=== PATIENT | female | born 1945 | race Caucasian/White ===

== ENCOUNTER 2018-10-14 03:23 | Inpatient (IN) | payer OTHER, BC ==
--- NOTE | 2018-10-14 03:49 | PDOC ---
History of Present Illness - General History Source: Patient Exam Limitations: No Limitations - History of Present Illness Initial Comments: Pt presenting with complaints of R flank and RLQ pain x5 days. Pt states the pain started in her R flank about 5 days ago, and has slowly migrated towards her RLQ. She has been tossing and turning at night, unable to get comfortable. She took 1 naproxen last night with minimal relief. There are no exacerbating or alleviating factors for the pain. The pain is crampy in nature, and comes and goes, lasting for a few hours at a time. She had nausea and 1 episode of NBNB vomiting just prior to arrival in the ER. Pt denies any history of kidney stones. Pt denies any fevers/chills, headache, vision changes, syncope, chest pain, palpitations, SOB, urinary symptoms (dysuria, hematuria, urgency), diarrhea/constipation, or leg swelling. Social: Pt skilled nursing cigarette user, has used electronic cigarettes over past few years. Denies alcohol or drug use. Pt denies any recent travel or sick contacts. Surgical: complete hysterectomy Family: no relevant history 10/14/18 06:16 <Angie Hammond - Last Filed: 10/14/18 05:49> <Alejandra Duran - Last Filed: 10/14/18 07:15> - General Chief Complaint: Pain, Acute Stated Complaint: R SIDED ABD PAIN Time Seen by Provider: 10/14/18 03:49 Past History - Travel Traveled outside of the country in the last 30 days: No Close contact w/someone who was outside of country & ill: No - Past Medical History Diabetes: No HTN: No Hypercholesterolemia: No Kidney Stones: No - Surgical History Abdominal Surgery: Yes (complete hysterectomy) Appendectomy: No Cholecystectomy: No - Suicide/Smoking/Psychosocial Hx Smoking History: Former smoker Have you smoked in the past 12 months: No If you are a former smoker, when did you quit?: 4 Information on smoking cessation initiated: No Hx Alcohol Use: No Drug/Substance Use Hx: No <Angie Hammond - Last Filed: 10/14/18 05:49> <Alejandra Duran - Last Filed: 10/14/18 07:15> - Past Medical History Allergies/Adverse Reactions: Allergies Allergy/AdvReac Type Severity Reaction Status Date / Time No Known Allergies Allergy Verified 10/14/18 03:43 Home Medications: Ambulatory Orders NK [No Known Home Medication] 10/14/18 Review of Systems - Review of Systems Able to Perform ROS?: Yes Is the patient limited Tunisian proficient: No Constitutional: Yes: Weight Stable. No: Chills, Diaphoresis, Fever, Loss of Appetite, Weakness HEENTM: No: Blurred Vision, Recent change in vision, Nose Congestion, Throat Pain, Difficulty Swallowing Respiratory: No: Cough, Orthopnea, Shortness of Breath Cardiac (ROS): No: Chest Pain, Edema, Irregular Heart Rate, Lightheadedness, Palpitations, Syncope, Chest Tightness ABD/GI: Yes: See HPI, Nausea, Vomiting, Abdominal cramping. No: Abdominal Distended, Blood Streaked Bowels, Constipated, Diarrhea, Poor Appetite, Poor Fluid Intake, Indigestion : Yes: Flank Pain. No: Burning, Dysuria, Discharge, Frequency, Hematuria, Incontinence, Pain, Urgency Musculoskeletal: No: Back Pain, Joint Pain Integumentary: No: Rash Neurological: No: Headache, Weakness, Unsteady Gait, Dizziness Psychiatric: No: Sleep Pattern Change, Change in Appetite Endocrine: No: Increased Urine, Change in Weight Hematologic/Lymphatic: No: Anemia, Blood Clots, Easy Bleeding, Easy Bruising All Other Systems: Reviewed and Negative <Angie Hammond - Last Filed: 10/14/18 05:49> *Physical Exam - Vital Signs Last Vital Signs Temp Pulse Resp BP Pulse Ox 98.1 F 70 18 154/68 99 10/14/18 03:43 10/14/18 03:43 10/14/18 03:43 10/14/18 03:43 10/14/18 03:43 - Physical Exam General Appearance: Yes: Nourished, Appropriately Dressed, Mild Distress ( Vitals stable, but pt appears uncomfortable, holding RLQ.) HEENT: positive: EOMI, ALBERT, Normal ENT Inspection, Normal Voice, Pharynx Normal , Hearing Grossly Normal. negative: Scleral Icterus (R), Scleral Icterus (L), Pharyngeal Erythema, Tonsillar Exudate, Tonsillar Erythema, Rhinorrhea Neck: positive: Trachea midline, Normal Thyroid, Supple. negative: Tender, Rigid, Lymphadenopathy (R), Lymphadenopathy (L) Respiratory/Chest: positive: Lungs Clear, Normal Breath Sounds. negative: Chest Tender, Respiratory Distress, Accessory Muscle Use, Crackles, Wheezing Cardiovascular: positive: Regular Rhythm, Regular Rate, S1, S2. negative: Edema , JVD, Murmur Vascular Pulses: Carotid (R): 4+, Carotid (L): 4+ Gastrointestinal/Abdominal: positive: Normal Bowel Sounds, Flat, Soft. negative : Tender, Organomegaly, Pulsatile Mass, Distended, Guarding, Rebound, Hernia Rectal Exam: positive: deferred Lymphatic: negative: Adenopathy, Tenderness Musculoskeletal: positive: Normal Inspection. negative: CVA Tenderness Extremity: positive: Normal Capillary Refill, Normal Inspection, Normal Range of Motion, Pelvis Stable. negative: Tender, Pedal Edema Integumentary: positive: Normal Color, Dry, Warm. negative: Jaundice, Clammy, Diaphoresis, Rash Neurologic: positive: autos disassembler II-XII NML intact, Fully Oriented, Alert, Normal Mood/ Affect, Normal Response, Motor Strength 5/5 <Angie Hammond - Last Filed: 10/14/18 05:49> - Vital Signs Last Vital Signs Temp Pulse Resp BP Pulse Ox 98.1 F 70 18 154/68 99 10/14/18 03:43 10/14/18 03:43 10/14/18 03:43 10/14/18 03:43 10/14/18 03:43 <Alejandra Duran - Last Filed: 10/14/18 07:15> Moderate Sedation - Procedure Monitoring Vital Signs: Procedure Monitoring Vital Signs Temperature 98.1 F 10/14/18 03:43 Pulse Rate 70 10/14/18 03:43 Respiratory Rate 18 10/14/18 03:43 Blood Pressure 154/68 10/14/18 03:43 O2 Sat by Pulse Oximetry (%) 99 10/14/18 03:43 <Angie Hammond - Last Filed: 10/14/18 05:49> - Procedure Monitoring Vital Signs: Procedure Monitoring Vital Signs Temperature 98.1 F 10/14/18 03:43 Pulse Rate 70 10/14/18 03:43 Respiratory Rate 18 10/14/18 03:43 Blood Pressure 154/68 10/14/18 03:43 O2 Sat by Pulse Oximetry (%) 99 10/14/18 03:43 <Alejandra Duran - Last Filed: 10/14/18 07:15> ED Treatment Course - LABORATORY CBC & Chemistry Diagram: 10/14/18 04:35 10/14/18 04:35 <Angie Hammond - Last Filed: 10/14/18 05:49> - LABORATORY CBC & Chemistry Diagram: 10/14/18 04:35 10/14/18 04:35 - ADDITIONAL ORDERS Additional order review: Laboratory Results 10/14/18 10/14/18 05:53 04:35 Sodium 142 Potassium 5.0 Chloride 109 H Carbon Dioxide 28 Anion Gap 5 L BUN 21 H Creatinine 0.8 Creat Clearance w eGFR > 60 Random Glucose 95 Calcium 8.8 Total Bilirubin 0.7 AST 29 ALT 20 Alkaline Phosphatase 83 Total Protein 6.7 Albumin 4.0 Urine Color Yellow Urine Appearance Clear Urine pH 5.0 Ur Specific [place] 1.028 Urine Protein Negative Urine Glucose (UA) Negative Urine Ketones Negative Urine Blood 2+ H Urine Nitrite Negative Urine Bilirubin Negative Urine Urobilinogen Negative Ur Leukocyte Esterase Trace Urine WBC (Auto) 19 Urine RBC (Auto) 8 Ur Epithelial Cells Rare Urine Mucus Rare 10/14/18 04:35 RBC 4.65 MCV 81.9 MCHC 34.5 RDW 13.2 MPV 8.0 Neutrophils % 68.9 Lymphocytes % 19.9 D Monocytes % 8.0 Eosinophils % 2.2 Basophils % 1.0 - Medications Given in the ED: ED Medications Discontinued Medications Generic Name Dose Route Start Last Admin Trade Name Freq PRN Reason Stop Dose Admin Acetaminophen 1,000 mg 10/14/18 04:04 10/14/18 04:29 Ofirmev Injection - IVPB 10/14/18 04:05 Not Given ONCE ONE Acetaminophen 1,000 mg 10/14/18 04:04 10/14/18 04:28 Ofirmev Injection - IVPB 10/14/18 04:05 1,000 mg ONCE ONE Administration Sodium Chloride 1,000 mls @ 1,000 mls/hr 10/14/18 04:04 10/14/18 04:28 Normal Saline - IV 10/14/18 05:03 Not Given ASDIR STA Sodium Chloride 1,000 mls @ 1,000 mls/hr 10/14/18 04:04 10/14/18 04:28 Normal Saline - IV 10/14/18 05:03 1,000 mls/hr ASDIR STA Administration Ceftriaxone Sodium 1,000 mg/ 50 mls @ 100 mls/hr 10/14/18 06:20 10/14/18 06: 28 Dextrose IVPB 10/14/18 06:49 100 mls/hr ONCE ONE Administration Ketorolac Tromethamine 15 mg 10/14/18 04:10 10/14/18 04:28 Toradol Injection - IVPUSH 10/14/18 04:11 15 mg ONCE ONE Administration Morphine Sulfate 2 mg 10/14/18 04:43 10/14/18 04:50 Morphine Injection - IVPUSH 10/14/18 04:44 2 mg ONCE ONE Administration Morphine Sulfate 2 mg 10/14/18 06:20 10/14/18 06:28 Morphine Injection - IVPUSH 10/14/18 06:21 Not Given ONCE ONE Morphine Sulfate 4 mg 10/14/18 06:20 10/14/18 06:28 Morphine Injection - IVPUSH 10/14/18 06:21 4 mg ONCE ONE Administration Ondansetron HCl 4 mg 10/14/18 04:04 10/14/18 04:28 Zofran Injection IVPUSH 10/14/18 04:05 4 mg ONCE ONE Administration <Alejandra Duran - Last Filed: 10/14/18 07:15> Medical Decision Making - Medical Decision Making Pt was seen at bedside, also will be seen by attending Dr. Duran. Pt presenting with complaints of R flank and RLQ pain x5 days. Pt states the pain started in her R flank about 5 days ago, and has slowly migrated towards her RLQ. She has been tossing and turning at night, unable to get comfortable. She took 1 naproxen last night with minimal relief. There are no exacerbating or alleviating factors for the pain. The pain is crampy in nature, and comes and goes, lasting for a few hours at a time. She had nausea and 1 episode of NBNB vomiting just prior to arrival in the ER. Pt denies any history of kidney stones. Pt denies any fevers/chills, headache, vision changes, syncope, chest pain, palpitations, SOB, urinary symptoms (dysuria, hematuria, urgency), diarrhea/constipation, or leg swelling. PE showed no abdominal tenderness, rebound, or guarding. No CVA tenderness. Heart and lung sounds clear. Considering [vs vs] No concern for ovarian pathology as pt had complete hysterectomy performed with ovarian removal. Ordered work-up including CBC, CMP, UA, urine culture, and spiral CT scan r/o stones. Provided 1 g ofirmev, 1 L IV NS, 4 mg IV zofran, 15 mg IV toradol for improvement of pain. Will continue to reassess pt and monitor for symptomatic improvement. Preliminary bedside US showed no hydronephrosis. No stones visualized. Pt still complaining of pain, providing 2 mg IV morphine. 10/14/18 04:44 CBC: 12.[address] scan (performing scan without contrast) 10/14/18 04:55 FINDINGS: Moderate emphysema is noted predominating in the right lower lobe. The visualized cardiac chambers are normal size and configuration. Normal unenhanced liver, gallbladder, pancreas, spleen, adrenal glands and kidneys. The stomach and abdominal small and large bowel are normal. There is no aortic aneurysm. There is no significant retroperitoneal lymphadenopathy. The pelvic small and large bowel are normal. The appendix is normal. Status post hysterectomy. Urinary bladder is unremarkable. There is no pelvic free fluid. No discrete pelvic lymphadenopathy is identified. 10/14/18 05:49 CMP generally WNL. 10/14/18 05:49 Urine sent, pending. 10/14/18 06:05 <Angie Hammond - Last Filed: 10/14/18 05:49> *DC/Admit/Observation/Transfer <Angie Hammond - Last Filed: 10/14/18 05:49> - Discharge Dispostion Decision to Admit order: Yes Decision to Admit order Date/Time: Decision to Admit Order Category Date Time Status Decision to Admit to Hospital Routine Admission 10/14/18 07:14 Ordered <Alejandra Duran - Last Filed: 10/14/18 07:15> Diagnosis at time of Disposition: Acute pyelonephritis - Discharge Dispostion Condition at time of disposition: Improved - Referrals Referrals: Jaylon Atkins MD [Primary Care Provider] - - Patient Instructions - Post Discharge Activity
[2018-10-14] MEDS ORDERED: SODIUM CHLORIDE 1,000 ML IV STA ×2 (04:04)
[2018-10-14] MEDS ORDERED: ACETAMINOPHEN 1000 MG/100 ML VIAL (NON FORMULARY) IVPB ONE ×2 (04:04)
[2018-10-14] MEDS ORDERED: ONDANSETRON 4 MG/2 ML VIAL IVPUSH ONE (04:04)
--- NOTE | 2018-10-14 04:05 | PDOC ---
Attending Attestation - Resident Resident Name: Angie Hammond - ED Attending Attestation I have performed the following: I have examined & evaluated the patient, The case was reviewed & discussed with the resident, I agree w/resident's findings & plan - HPI HPI: 10/14/18 04:51 [id number], with no significant past medical history, who presents to the emergency department with, right flank pain radiating to her right groin x 5 days. She endorses taking Naproxen, with minimal relief. no history of kidney stones. She denies recent fevers, chills, headache or dizziness. She denies recent nausea, vomit, diarrhea or constipation. She denies recent dysuria, frequency, urgency or hematuria. She denies recent chest pain or shortness of breath. Allergies: NKA Past surgical history: None reported. Social history: Former smoker. Primary Care Physician: Dr. Atkins 10/14/18 04:51 - Physicial Exam PE: 10/14/18 04:51 +colicky, mild distress 2/2 pain. nl conjunctiva, anicteric; neck supple. lungs clear, RRR, abdomen soft +RLQ/groind TTP, no rebound or guarding. no CVAT. PHAN x4, no focal neuro deficits. No peripheral edema. normal color for ethnicity, WWP. - Medical Decision Making 10/14/18 04:53 DDx abdominal pain: Renal colic, ureteral stone. biliary colic, metabolic/ electrolyte derangements. GERD, PUD, esophageal spasm, pancreatitis, hepatitis, constipation, colitis, gastroenteritis, cholecystitis, UTI, pyelonephritis, ileus, SBO, medication side effect, hernia, appendicitis, diverticulitis hpi as documented VS wnl. no fever here labs and lytes_with mild leukocytosis of 12K UA_positive with copious WBCs, correlating with infection bedside renal sono neg for hydronephrosis, +color flow bilaterally, no pelvic FF. still suspecting renal stone/due to pain and presentation, will do CT krish. CT neg for stone or pathology/infection clinically correlating with acute pyelo with +UTI. f/u urine cultures given analgesia with morphine, toradol/tylenol, IVF Ceftriaxone tx. pt elects for admission when offered, which is appropriate due to her pain and clinical pyelo presentation. admit to medicine team for management. 10/14/18 07:03 10/14/18 07:07
[2018-10-14] MEDS ORDERED: KETOROLAC TROMETHAMINE 15 MG/ML VIAL IVPUSH ONE (04:10)
[2018-10-14] MEDS ORDERED: morphine CARPU-JECT 4 MG/1 ML DISP.SYRIN IVPUSH ONE ×3 (04:43→06:20)
[2018-10-14 04:44] LABS: EOS % 2.2 % (0-4.5); HEMOGLOBIN 13.1 GM/dL (10.7-15.3); LYMPH % 19.9 % (8-40); MCH 28.3 pg (25.7-33.7); MCHC 34.5 g/dl (32.0-36.0); MEAN CELL VOLUME 81.9 fl (80-96); NEUT % 68.9 % (42.8-82.8); PLATELET COUNT 360 K/MM3 (134-434); RBC 4.65 M/mm3 (3.60-5.2); RDW 13.2 % (11.6-15.6); WHITE BLOOD COUNT 12.1 K/mm3 (4.0-10.0)
[2018-10-14 05:31] LABS: ALK PHOS 83 U/L (45-117); ANION GAP 5 MMOL/L (8-16); BILIRUBIN,TOTAL 0.7 mg/dL (0.2-1); BLOOD UREA NITROGEN 21 mg/dL (7-18); CALCIUM 8.8 mg/dL (8.5-10.1); CHLORIDE 109 mmol/L (98-107); CO2 28 mmol/L (21-32); CREATININE 0.8 mg/dL (0.55-1.3); GLUCOSE,RANDOM 95 mg/dL (74-106); SGOT/AST 29 U/L (15-37); SGPT/ALT 20 U/L (13-61); SODIUM 142 mmol/L (136-145); TOT PROT 6.7 g/dl (6.4-8.2)
[2018-10-14 06:08] LABS: URINE APPEARANCE CLEAR; URINE BILIRUBIN NEGATIVE (<2.0 mg/dL); URINE COLOR YELLOW; URINE GLUCOSE (UA) NEGATIVE (NEGATIVE); URINE KETONE NEGATIVE (NEGATIVE); URINE LEUK ESTERASE TRACE (NEGATIVE); URINE NITRITE NEGATIVE (NEGATIVE); URINE PROTEIN NEGATIVE (NEGATIVE); URINE UROBILINOGEN NEGATIVE mg/dL (0.2-1.0)
[2018-10-14 06:12] LABS: EPI CELLS RARE /HPF (FEW); URINE MUCUS RARE
[2018-10-14] MEDS ORDERED: CEFTRIAXONE 1,000 MG in DEXTROSE 5%-WATER - 50 ML IVPB ONE (06:20)
[2018-10-14] MEDS ORDERED: SODIUM CHLORIDE 500 ML IV STA (07:37)
--- NOTE | 2018-10-14 07:57 | PDOC ---
*Physical Exam - Vital Signs Last Vital Signs Temp Pulse Resp BP Pulse Ox 98.6 F 74 16 130/58 L 95 10/14/18 09:11 10/14/18 09:11 10/14/18 09:11 10/14/18 09:11 10/14/18 09:11 <Gladys Lott - Last Filed: 10/14/18 09:38> - Vital Signs Last Vital Signs Temp Pulse Resp BP Pulse Ox 98.1 F 70 18 154/68 99 10/14/18 03:43 10/14/18 03:43 10/14/18 03:43 10/14/18 03:43 10/14/18 03:43 <Cayla Mike - Last Filed: 10/14/18 18:37> ED Treatment Course - LABORATORY CBC & Chemistry Diagram: 10/14/18 04:35 10/14/18 04:35 - ADDITIONAL ORDERS Additional order review: Laboratory Results 10/14/18 10/14/18 05:53 04:35 Sodium 142 Potassium 5.0 Chloride 109 H Carbon Dioxide 28 Anion Gap 5 L BUN 21 H Creatinine 0.8 Creat Clearance w eGFR > 60 Random Glucose 95 Calcium 8.8 Total Bilirubin 0.7 AST 29 ALT 20 Alkaline Phosphatase 83 Total Protein 6.7 Albumin 4.0 Urine Color Yellow Urine Appearance Clear Urine pH 5.0 Ur Specific [place] 1.028 Urine Protein Negative Urine Glucose (UA) Negative Urine Ketones Negative Urine Blood 2+ H Urine Nitrite Negative Urine Bilirubin Negative Urine Urobilinogen Negative Ur Leukocyte Esterase Trace Urine WBC (Auto) 19 Urine RBC (Auto) 8 Ur Epithelial Cells Rare Urine Mucus Rare 10/14/18 04:35 RBC 4.65 MCV 81.9 MCHC 34.5 RDW 13.2 MPV 8.0 Neutrophils % 68.9 Lymphocytes % 19.9 D Monocytes % 8.0 Eosinophils % 2.2 Basophils % 1.0 - Medications Given in the ED: ED Medications Discontinued Medications Generic Name Dose Route Start Last Admin Trade Name Freq PRN Reason Stop Dose Admin Acetaminophen 1,000 mg 10/14/18 04:04 10/14/18 04:29 Ofirmev Injection - IVPB 10/14/18 04:05 Not Given ONCE ONE Acetaminophen 1,000 mg 10/14/18 04:04 10/14/18 04:28 Ofirmev Injection - IVPB 10/14/18 04:05 1,000 mg ONCE ONE Administration Sodium Chloride 1,000 mls @ 1,000 mls/hr 10/14/18 04:04 10/14/18 04:28 Normal Saline - IV 10/14/18 05:03 Not Given ASDIR STA Sodium Chloride 1,000 mls @ 1,000 mls/hr 10/14/18 04:04 10/14/18 04:28 Normal Saline - IV 10/14/18 05:03 1,000 mls/hr ASDIR STA Administration Ceftriaxone Sodium 1,000 mg/ 50 mls @ 100 mls/hr 10/14/18 06:20 10/14/18 06: 28 Dextrose IVPB 10/14/18 06:49 100 mls/hr ONCE ONE Administration Sodium Chloride 500 mls @ 500 mls/hr 10/14/18 07:37 10/14/18 08:03 Normal Saline - IV 10/14/18 08:36 500 mls/hr ASDIR STA Administration Ketorolac Tromethamine 15 mg 10/14/18 04:10 10/14/18 04:28 Toradol Injection - IVPUSH 10/14/18 04:11 15 mg ONCE ONE Administration Morphine Sulfate 2 mg 10/14/18 04:43 10/14/18 04:50 Morphine Injection - IVPUSH 10/14/18 04:44 2 mg ONCE ONE Administration Morphine Sulfate 2 mg 10/14/18 06:20 10/14/18 06:28 Morphine Injection - IVPUSH 10/14/18 06:21 Not Given ONCE ONE Morphine Sulfate 4 mg 10/14/18 06:20 10/14/18 06:28 Morphine Injection - IVPUSH 10/14/18 06:21 4 mg ONCE ONE Administration Ondansetron HCl 4 mg 10/14/18 04:04 10/14/18 04:28 Zofran Injection IVPUSH 10/14/18 04:05 4 mg ONCE ONE Administration <Gladys Lott - Last Filed: 10/14/18 09:38> - LABORATORY CBC & Chemistry Diagram: 10/14/18 04:35 10/14/18 04:35 - ADDITIONAL ORDERS Additional order review: Laboratory Results 10/14/18 10/14/18 05:53 04:35 Sodium 142 Potassium 5.0 Chloride 109 H Carbon Dioxide 28 Anion Gap 5 L BUN 21 H Creatinine 0.8 Creat Clearance w eGFR > 60 Random Glucose 95 Calcium 8.8 Total Bilirubin 0.7 AST 29 ALT 20 Alkaline Phosphatase 83 Total Protein 6.7 Albumin 4.0 Urine Color Yellow Urine Appearance Clear Urine pH 5.0 Ur Specific [place] 1.028 Urine Protein Negative Urine Glucose (UA) Negative Urine Ketones Negative Urine Blood 2+ H Urine Nitrite Negative Urine Bilirubin Negative Urine Urobilinogen Negative Ur Leukocyte Esterase Trace Urine WBC (Auto) 19 Urine RBC (Auto) 8 Ur Epithelial Cells Rare Urine Mucus Rare 10/14/18 04:35 RBC 4.65 MCV 81.9 MCHC 34.5 RDW 13.2 MPV 8.0 Neutrophils % 68.9 Lymphocytes % 19.9 D Monocytes % 8.0 Eosinophils % 2.2 Basophils % 1.0 - Medications Given in the ED: ED Medications Discontinued Medications Generic Name Dose Route Start Last Admin Trade Name Freq PRN Reason Stop Dose Admin Acetaminophen 1,000 mg 10/14/18 04:04 10/14/18 04:29 Ofirmev Injection - IVPB 10/14/18 04:05 Not Given ONCE ONE Acetaminophen 1,000 mg 10/14/18 04:04 10/14/18 04:28 Ofirmev Injection - IVPB 10/14/18 04:05 1,000 mg ONCE ONE Administration Sodium Chloride 1,000 mls @ 1,000 mls/hr 10/14/18 04:04 10/14/18 04:28 Normal Saline - IV 10/14/18 05:03 Not Given ASDIR STA Sodium Chloride 1,000 mls @ 1,000 mls/hr 10/14/18 04:04 10/14/18 04:28 Normal Saline - IV 10/14/18 05:03 1,000 mls/hr ASDIR STA Administration Ceftriaxone Sodium 1,000 mg/ 50 mls @ 100 mls/hr 10/14/18 06:20 10/14/18 06: 28 Dextrose IVPB 10/14/18 06:49 100 mls/hr ONCE ONE Administration Ketorolac Tromethamine 15 mg 10/14/18 04:10 10/14/18 04:28 Toradol Injection - IVPUSH 10/14/18 04:11 15 mg ONCE ONE Administration Morphine Sulfate 2 mg 10/14/18 04:43 10/14/18 04:50 Morphine Injection - IVPUSH 10/14/18 04:44 2 mg ONCE ONE Administration Morphine Sulfate 2 mg 10/14/18 06:20 10/14/18 06:28 Morphine Injection - IVPUSH 10/14/18 06:21 Not Given ONCE ONE Morphine Sulfate 4 mg 10/14/18 06:20 10/14/18 06:28 Morphine Injection - IVPUSH 10/14/18 06:21 4 mg ONCE ONE Administration Ondansetron HCl 4 mg 10/14/18 04:04 10/14/18 04:28 Zofran Injection IVPUSH 10/14/18 04:05 4 mg ONCE ONE Administration <Cayla Mike - Last Filed: 10/14/18 18:37> Medical Decision Making - Medical Decision Making 73yo F with UTI and intractable R. flank/RLQ pain Awaiting callback from hospitalist team Patient with dry mucus membranes. 500cc NS ordered Patient still endorsing nausea after 4mg zofran, but deferred antinausea medicine at this time. 10/14/18 07:[address] Calvo who accepted patient for admission. 10/14/18 18:36 <Cayla Mike - Last Filed: 10/14/18 18:37> *DC/Admit/Observation/Transfer <Gladys Lott - Last Filed: 10/14/18 09:38> <Cayla Mike - Last Filed: 10/14/18 18:37> Diagnosis at time of Disposition: Acute pyelonephritis - Discharge Dispostion Condition at time of disposition: Improved
--- NOTE | 2018-10-14 12:56 | PN ---
Progress Note (short form) - Note Progress Note: ID consult dictated right lower back pain radiating to the front- ?radiculopathy no fevers gradually worsening over the course of one week not c/w pyelonephritis or cysitis-very atypical for uti no evidence of appendicitis consider imaging of the LS spine esr/crp cultures rocephin for possible uti Problem List - Problems (1) Radiculopathy of lumbar region Code(s): M54.16 - RADICULOPATHY, LUMBAR REGION (2) UTI (urinary tract infection) Code(s): N39.0 - URINARY TRACT INFECTION, SITE NOT SPECIFIED
--- NOTE | 2018-10-14 17:59 | HP ---
Admitting History and Physical - Primary Care Physician PCP: Lizzie Calvo - Admission Chief Complaint: FLANK PAIN/PYELONEPHRITIS History of Present Illness: Pt presenting with complaints of R flank and RLQ pain x5 days. Pt states the pain started in her R flank about 5 days ago, and has slowly migrated towards her RLQ. She has been tossing and turning at night, unable to get comfortable. She took 1 naproxen last night with minimal relief. There are no exacerbating or alleviating factors for the pain. The pain is crampy in nature, and comes and goes, lasting for a few hours at a time. She had nausea and 1 episode of NBNB vomiting just prior to arrival in the ER. Pt denies any history of kidney stones. Pt denies any fevers/chills, headache, vision changes, syncope, chest pain, palpitations, SOB, urinary symptoms (dysuria, hematuria, urgency), diarrhea/constipation, or leg swelling. History Source: Patient, Medical Record - Smoking History Smoking history: Former smoker Have you smoked in the past 12 months: No If you are a former smoker, when did you quit?: 4 - Alcohol/Substance Use Hx Alcohol Use: No Home Medications - Allergies Allergies/Adverse Reactions: Allergies Allergy/AdvReac Type Severity Reaction Status Date / Time No Known Allergies Allergy Verified 10/14/18 03:43 - Home Medications Home Medications: Ambulatory Orders NK [No Known Home Medication] 10/14/18 Review of Systems - Review of Systems Constitutional: reports: Weakness Eyes: reports: No Symptoms HENT: reports: No Symptoms Neck: reports: No Symptoms Cardiovascular: reports: No Symptoms Respiratory: reports: No Symptoms Gastrointestinal: reports: Abdominal Pain, Other Genitourinary: reports: Flank Pain Musculoskeletal: reports: Muscle Weakness Integumentary: reports: No Symptoms Neurological: reports: No Symptoms Endocrine: reports: No Symptoms Hematology/Lymphatic: reports: No Symptoms Physical Examination Vital Signs: Vital Signs Temperature 98.3 F 10/14/18 11:59 Pulse Rate 74 10/14/18 15:50 Respiratory Rate 16 10/14/18 15:50 Blood Pressure 145/54 L 10/14/18 15:50 O2 Sat by Pulse Oximetry (%) 97 10/14/18 15:50 Constitutional: Yes: Mild Distress Eyes: Yes: WNL HENT: Yes: WNL Neck: Yes: WNL Cardiovascular: Yes: Regular Rate and Rhythm Respiratory: Yes: WNL Gastrointestinal: Yes: Tenderness Renal/: Yes: CVA Tenderness - Right Musculoskeletal: Yes: Back Pain Extremities: Yes: WNL Edema: No Peripheral Pulses WNL: Yes Integumentary: Yes: WNL Wound/Incision: Yes: Clean/Dry Neurological: Yes: WNL ...Motor Strength: WNL Psychiatric: Yes: WNL Labs: CBC, BMP 10/14/18 04:35 10/14/18 04:35 Imaging - Results Cat Scan: Report Reviewed Problem List - Problems (1) Radiculopathy of lumbar region Code(s): M54.16 - RADICULOPATHY, LUMBAR REGION (2) Acute pyelonephritis Code(s): N10 - ACUTE PYELONEPHRITIS Assessment/Plan IV ABX MR OF L SPINE PAIN CONTROL IVF CHECK CX
[2018-10-14] MEDS ORDERED: DOCUSATE SODIUM 100 MG CAPSULE (FP) PO PRN (18:03)
[2018-10-14] MEDS ORDERED: ACETAMINOPHEN 325 MG TABLET (FP) PO PRN (18:04)
[2018-10-14] MEDS ORDERED: oxyCODONE HCL 5 MG TABLET ONE (18:20)
[2018-10-14] MEDS: oxyCODONE HCL 5 MG TABLET PO PRN (18:20)
--- NOTE | 2018-10-14 20:07 | CONS ---
DATE OF CONSULTATION: DATE OF DICTATION: 10/14/2018 REQUESTING PHYSICIAN: Lizzie Calvo M.D. CONSULTING PHYSICIAN: Verónica Garza M.D. HISTORY OF PRESENT ILLNESS: This is a 73-year-old woman who before Aaliyah was at her daughter's house in her media room. She was watching movies. She was sitting on the couch. And then when she got up she had a discomfort in her right back. This persisted and worsened. She developed a band-like pain that radiated from above her right buttocks and above, and it came around in a radial fashion to the front. This worsened and worsened, and she presented to the emergency room at [facility] with these complaints. She never had any fevers or chills. In the ER, she had a CAT scan of her abdomen and pelvis done that was essentially normal. As well it shows no evidence of diverticulitis or appendicitis. She had no fevers and her urinalysis showed 19 white cells. She at the time this happened noted she had difficulty getting up from the chair. She had 1 episode of nausea and vomiting. She had no fevers or chills. ALLERGIES: She has no known drug allergies. PAST SURGICAL HISTORY: She has never had any surgery before. PRIMARY CARE PHYSICIAN: Her primary care doctor is Dr. Atkins. MEDICATION: Her medications at home, she does not regularly take any medicine. SOCIAL HISTORY: There is no history of substance use, and she is a former smoker. REVIEW OF SYSTEMS: Notable for just this pain, otherwise she has no complaints. PHYSICAL EXAMINATION: GENERAL: She is awake and alert. VITAL SIGNS: Temperature 98.3, pulse 74, blood pressure 144/54, respiratory rate 16, she is saturating 97% on room air. HEENT: Normocephalic. Eyes are anicteric. NECK: Supple. LUNGS: Clear to auscultation. HEART: Regular rate and rhythm. ABDOMEN: Soft. She has no CVA or suprapubic pain she has a bandlike distribution. She has no rash. EXTREMITIES: Without edema. LABORATORY: White count is 12, hemoglobin is 13.1, platelets are 360, BUN and creatinine are 21 and 0.8. LFTs are normal. Her urinalysis is trace leukocytes and 19 white cells and urine culture is pending. IMPRESSION: In summary, this is a 73-year-old woman admitted with a right lower back pain radiating to the front band like distribution, more consistent with a radiculopathy than with a pyelonephritis. She has had no fevers. Gradually worsening over the course of 1 week. Given she does have some white cells in her urine, it would be reasonable to treat her for urinary tract infection, though this would be very atypical. There is no signs of appendicitis or pyelonephritis. Consider imaging of her LS spine. Check a sedimentation rate, CRP, and cultures. Continue Rocephin for now for possible urinary tract infection. Further recommendations to follow. Brenda [id number]
[2018-10-15 04:47] VITALS: BMI 27.2
[2018-10-15] MEDS: SODIUM CHLORIDE 1,000 ML IV SCH (05:50)
[2018-10-15 06:34] LABS: HEMOGLOBIN 11.2 GM/dL (10.7-15.3); MCH 27.1 pg (25.7-33.7); MCHC 32.9 g/dl (32.0-36.0); MEAN CELL VOLUME 82.5 fl (80-96); MEAN PLT VOLUME 7.9 fl (7.5-11.1); PLATELET COUNT 261 K/MM3 (134-434); RBC 4.12 M/mm3 (3.60-5.2); RDW 13.1 % (11.6-15.6); WHITE BLOOD COUNT 8.8 K/mm3 (4.0-10.0)
[2018-10-15 06:50] LABS: ANION GAP 6 MMOL/L (8-16); BLOOD UREA NITROGEN 16 mg/dL (7-18); CALCIUM 8.1 mg/dL (8.5-10.1); CHLORIDE 112 mmol/L (98-107); CO2 25 mmol/L (21-32); CREATININE 0.7 mg/dL (0.55-1.3); GLUCOSE,RANDOM 83 mg/dL (74-106); SODIUM 143 mmol/L (136-145)
[2018-10-15] MEDS: oxyCODONE HCL 5 MG TABLET PO PRN (07:56)
[2018-10-15] MEDS ORDERED: cefTRIAXone SODIUM 1 GM VIAL ONE (09:29)
[2018-10-15] MEDS ORDERED: DEXTROSE 5%-WATER - 50 ML IVPB ONE (09:29)
[2018-10-15] MEDS: CEFTRIAXONE 1 GM in DEXTROSE 5%-WATER - 50 ML IVPB SCH (09:37)
--- NOTE | 2018-10-15 12:07 | PN ---
Progress Note, Physician Chief Complaint: patient on iv abx for uti got MRI of LS spine - Current Medication List Current Medications: Active Medications Acetaminophen (Tylenol -) 650 mg PO Q6H PRN PRN Reason: PAIN OR FEVER Last Admin: 10/15/18 07:56 Dose: 650 mg Docusate Sodium (Colace -) 100 mg PO BID PRN PRN Reason: CONSTIPATION Ceftriaxone Sodium 1 gm/ (Dextrose) 50 mls @ 100 mls/hr IVPB DAILY OMAIRA; Protocol Last Admin: 10/15/18 09:37 Dose: 100 mls/hr Sodium Chloride (Normal Saline -) 1,000 mls @ 75 mls/hr IV ASDIR OMAIRA Last Admin: 10/15/18 05:50 Dose: 75 mls/hr Oxycodone HCl (Roxicodone -) 5 mg PO Q6H PRN PRN Reason: PAIN LEVEL 7 - 10 Last Admin: 10/15/18 07:56 Dose: 5 mg - Objective Vital Signs: Vital Signs Temperature 97.4 F L 10/15/18 06:00 Pulse Rate 69 10/15/18 06:00 Respiratory Rate 18 10/15/18 06:00 Blood Pressure 143/68 10/15/18 06:00 O2 Sat by Pulse Oximetry (%) 98 10/15/18 00:00 Constitutional: Yes: Calm Cardiovascular: Yes: Regular Rate and Rhythm, S1, S2 Respiratory: Yes: CTA Bilaterally Gastrointestinal: Yes: Normal Bowel Sounds, Soft Neurological: Yes: Alert, Oriented Labs: CBC, BMP 10/15/18 05:00 10/15/18 05:00 Problem List - Problems (1) Radiculopathy of lumbar region Assessment/Plan: MRI done awaiting report pain control neuro Code(s): M54.16 - RADICULOPATHY, LUMBAR REGION (2) UTI (urinary tract infection) Assessment/Plan: iv rocephin repeat cx ordered Code(s): N39.0 - URINARY TRACT INFECTION, SITE NOT SPECIFIED
[2018-10-16] MEDS ORDERED: cefTRIAXone SODIUM 1 GM VIAL ONE (09:08)
[2018-10-16] MEDS ORDERED: DEXTROSE 5%-WATER - 50 ML IVPB ONE (09:08)
[2018-10-16 09:13] VITALS: PULSE 75; TEMP 98.2
[2018-10-16] MEDS: CEFTRIAXONE 1 GM in DEXTROSE 5%-WATER - 50 ML IVPB SCH (09:13)
[2018-10-16] MEDS: SODIUM CHLORIDE 1,000 ML IV SCH (11:03)
--- NOTE | 2018-10-16 13:48 | PN ---
Progress Note, Physician Chief Complaint: patient seen and examiend MRI report noted explained to patient about the disc herniation hip pain slightly better - Current Medication List Current Medications: Active Medications Acetaminophen (Tylenol -) 650 mg PO Q6H PRN PRN Reason: PAIN OR FEVER Last Admin: 10/15/18 07:56 Dose: 650 mg Docusate Sodium (Colace -) 100 mg PO BID PRN PRN Reason: CONSTIPATION Last Admin: 10/15/18 22:18 Dose: 100 mg Ceftriaxone Sodium 1 gm/ (Dextrose) 50 mls @ 100 mls/hr IVPB DAILY OMAIRA; Protocol Last Admin: 10/16/18 09:13 Dose: 100 mls/hr Sodium Chloride (Normal Saline -) 1,000 mls @ 75 mls/hr IV ASDIR OMAIRA Last Admin: 10/16/18 11:03 Dose: 75 mls/hr Oxycodone HCl (Roxicodone -) 5 mg PO Q6H PRN PRN Reason: PAIN LEVEL 7 - 10 Last Admin: 10/15/18 07:56 Dose: 5 mg - Objective Vital Signs: Vital Signs Temperature 98.2 F 10/16/18 09:00 Pulse Rate 75 10/16/18 09:00 Respiratory Rate 18 10/16/18 09:00 Blood Pressure 135/52 L 10/16/18 09:00 O2 Sat by Pulse Oximetry (%) 95 10/15/18 21:00 Constitutional: Yes: Calm Neck: Yes: Trachea Midline Cardiovascular: Yes: Regular Rate and Rhythm, S1, S2 Respiratory: Yes: CTA Bilaterally Gastrointestinal: Yes: Normal Bowel Sounds, Soft Labs: CBC, BMP 10/15/18 05:00 10/15/18 05:00 Problem List - Problems (1) Radiculopathy of lumbar region Assessment/Plan: MRI done report noted disc bulge pain control nNES consult ordered - if no intervention will dc home in AM Code(s): M54.16 - RADICULOPATHY, LUMBAR REGION (2) UTI (urinary tract infection) Assessment/Plan: iv rocephin- repeat cx ordered no growth stop Code(s): N39.0 - URINARY TRACT INFECTION, SITE NOT SPECIFIED
--- NOTE | 2018-10-16 14:05 | DS ---
Physical Examination Vital Signs: Vital Signs Temperature 98.2 F 10/16/18 09:00 Pulse Rate 75 10/16/18 09:00 Respiratory Rate 18 10/16/18 09:00 Blood Pressure 135/52 L 10/16/18 09:00 O2 Sat by Pulse Oximetry (%) 95 10/15/18 21:00 Constitutional: Yes: Calm Neck: Yes: Trachea Midline Cardiovascular: Yes: Regular Rate and Rhythm, S1, S2 Respiratory: Yes: CTA Bilaterally Gastrointestinal: Yes: Normal Bowel Sounds, Soft Edema: No Neurological: Yes: Oriented Labs: CBC, BMP 10/15/18 05:00 10/15/18 05:00 Discharge Summary Reason For Visit: INTRACTABLE PAIN,PYELONEPHRITIS Current Active Problems Acute pyelonephritis (Acute) Radiculopathy of lumbar region (Acute) UTI (urinary tract infection) (Acute) Hospital Course: Primary Care Physician PCP: Lizzie Calvo - Admission Chief Complaint: FLANK PAIN/PYELONEPHRITIS History of Present Illness: Pt presenting with complaints of R flank and RLQ pain x5 days. Pt states the pain started in her R flank about 5 days ago, and has slowly migrated towards her RLQ. She has been tossing and turning at night, unable to get comfortable. She took 1 naproxen last night with minimal relief. There are no exacerbating or alleviating factors for the pain. The pain is crampy in nature, and comes and goes, lasting for a few hours at a time. She had nausea and 1 episode of NBNB vomiting just prior to arrival in the ER. Pt denies any history of kidney stones. Pt denies any fevers/chills, headache, vision changes, syncope, chest pain, palpitations, SOB, urinary symptoms (dysuria, hematuria, urgency), diarrhea/constipation, or leg swelling. admitted got MRI of L S spine t12 paracentral disc herniation with annular tear and soft tissue mass like density extending in upper 1/3 of vertebral body likely representing disc fragfment to see FRANCISCO JAVIER as outpatietn really wants to go home no bowel or bladder incontinence urine cx was negative , no dysuria no fever wbc count normal patient is ambulating Condition: Improved - Instructions Referrals: Jaylon Atkins MD [Primary Care Provider] - Ervin Matos MD [Staff Physician] - (fridayoct 20 at 9:30 am) Disposition: HOME - Home Medications Comprehensive Discharge Medication List: Ambulatory Orders NK [No Known Home Medication] 10/14/18
[2018-10-16 14:25] VITALS: BP 149/70
--- NOTE | 2018-10-16 18:21 | CONSULT ---
Consult - text type - Consultation Consultation Note: NEUROSURGERY CONSULTATION Caron Villarreal is a 73 year old female who was in her relative state of good health until a bending incident in late September 2018 when she suddenly noted sharp pain in her back radiating to her Right flank and Right Lower Quadrant. The patient has undergone extensive evaluation for intra-abdominal and retroperitoneal pathology without clear diagnosis. 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 The patient had extremely sharp pain initially and associated gait difficulties. She describes the pain as being the worst she has felt in her life and states that if it were to return she would contemplate suicide. Fortunately, she is somewhat improved although she walks with an antalgic gait and is clearly uncomfortable and is constantly shifting position. I described the risks, benefits and alternatives to T12L1 discectomy with possible interbody and posterior lateral fusion to the patient and her daughter (telephone) in great detail. I described the Anatomy, Pathology and imaging findings. The risks included, but were not limited to: , coma, paralysis, bleeding, infection, leakage of spinal fluid possibly requiring spinal drainage or additional surgery and failure to improve. I offered her the option of seeking another opinion or another surgeon. All questions were answered. Informed consent was obtained. I stressed that conservative management may be elected and that she may continue to recover without surgical intervention. I offered her the option of seeking another opinion or another surgeon. The patient will contemplate her options and will contact us with her decision.
== END 2018-10-16 18:15 | disposition home or self-care (01) | DRG 552 ==
LOC: JER 03:23 → JERBED 07:14 → J5S 21:46
PROVIDERS: ADMIT Family Medicine; ATTEND Family Medicine
DX: M51.15 Intervertebral disc disorders with radiculopathy, thoracolumbar region (principal); N10 Acute pyelonephritis; N39.0 Urinary tract infection, site not specified
CPT/HCPCS: 36415; 72148-TC; 74176; 80048; 80053; 81003; 81015; 85025; 85027; 85651; 86140; 87040; 87086; 99285-25; J0131; J7030

== ENCOUNTER 2020-12-19 18:14 | Emergency (ER) | payer OTHER, BC ==
[2020-12-19] MEDS ORDERED: ACETAMINOPHEN 500 MG TABLET (FP) PO ONE (18:33)
[2020-12-19] MEDS ORDERED: METHOCARBAMOL 500 MG TABLET PO ONE (18:33)
[2020-12-19 18:35] VITALS: TEMP 98.7; BMI 25.1
[2020-12-19] MEDS ORDERED: LIDOCAINE 5% TOPICAL PATCH TP ONE (18:41)
[2020-12-19] MEDS ORDERED: METHOCARBAMOL 500 MG TABLET ONE (18:44)
[2020-12-19] MEDS ORDERED: ACETAMINOPHEN 500 MG TABLET (FP) ONE (18:44)
[2020-12-19] MEDS ORDERED: LIDOCAINE 5% TOPICAL PATCH ONE (18:45)
[2020-12-19 20:03] VITALS: BP 139/73; PULSE 68
[2020-12-19] MEDS ORDERED: LIDOCAINE PATCH REMOVAL MC SCH (22:00)
== END 2020-12-19 20:08 | disposition home or self-care (01) ==
LOC: FER 18:14
DX: M62.838 Other muscle spasm (principal)
CPT/HCPCS: 70450-TC; 99284-25